=== PATIENT | male | born 1995 | race African-American/Black ===

== ENCOUNTER 2021-08-05 18:57 | Emergency (ER) | payer OTHER ==
[~2021-08-05] VITALS: Ht 175.3 cm; Wt 68.9 kg
[2021-08-05] MEDS ORDERED: IBUPROFEN 600 MG TAB PO STA (20:24)
[2021-08-05] MEDS ORDERED: IBUPROFEN600 MG PO (20:26)
[2021-08-05 20:34] VITALS: BP 170/99
== END 2021-08-05 20:34 | disposition home or self-care (01) ==
LOC: FSED 19:30
DX: M79.18 Myalgia, other site (principal); S00.511A Abrasion of lip, initial encounter; M79.631 Pain in right forearm; M79.652 Pain in left thigh; V44.5XXA Car driver injured in collision with heavy transport vehicle or bus in traffic accident, initial encounter; Y92.488 Other paved roadways as the place of occurrence of the external cause
CPT/HCPCS: 99282